=== PATIENT | female | born 1945 | race Two or more races ===

== ENCOUNTER 2018-07-08 19:40 | Inpatient (IN) | payer SELFPAY ==
[~2018-07-08] VITALS: Ht 157.5 cm; Wt 59.7 kg
[~2018-07-08 19:40] MED LIST: InsuLIN REG 1unit/0.01ml Soln (100units/ml) SC SCH
[2018-07-08 20:10] LABS: Basophils # (auto) 0 uL; Basophils % (auto) 0.6 % (0.0-2.0); Eosinophils # (auto) 0.1 uL; Eosinophils % (auto) 2.1 % (0.0-7.0); Hematocrit 32.6 % (36.0-46.0); Hemoglobin 10.6 g/dL (12.2-16.2); Lymphocytes # (auto) 1.1 uL; Lymphocytes % (auto) 21.5 % (10.0-50.0); Mean Corpuscular Hemoglobin 27.7 pg (28.0-32.0); Mean Corpuscular Hgb Conc. 32.7 g/dL (32.0-36.0); Mean Corpuscular Volume 84.7 fL (80.0-100.0); Monocytes # (auto) 0.4 uL; Monocytes % (auto) 8.2 % (0.0-12.0); Neutrophils # (auto) 3.5 uL; Neutrophils % (auto) 67.6 % (37.0-80.0); Platelet Count (auto) 218 10^3/uL (140-450); Red Blood Cells 3.84 10^6/uL (4.0-5.20); Red Cell Distribution Width 16.7 % (11.8-14.3); White Blood Cell 5.2 10^3/uL (4.4-10.8)
[2018-07-08 20:26] LABS: Albumin 3.5 g/dL (3.4-5.0); BUN/Creatinine Ratio 30.4; Calcium 7.9 mg/dL (8.5-10.1); Potassium 3.1 mmol/L (3.5-5.1)
[2018-07-08 20:31] LABS: Bilirubin, Total 0.4 mg/dL (0.2-1.0); Total Protein 7.5 g/dL (6.4-8.2)
[2018-07-08] MEDS ORDERED: POTASSIUM CHL 20MEQ/100ML 100 ML IV ONE (20:45)
[2018-07-08] MEDS ORDERED: ONDANSETRON HCL 4 MG/2 ML VIAL IV PRN (22:45)
[2018-07-08] MEDS ORDERED: HYDROcodone-ACET 5/325MG TAB PO PRN (22:45)
[2018-07-08] MEDS ORDERED: CALCIUM GLUC 4.65meq/50ml D5AE 50 ML IV ONE (23:30)
[2018-07-08] MEDS ORDERED: DEXTROSE (50%) 50ML SYRG IV PRN (23:30)
[2018-07-08] MEDS ORDERED: MAGNESIUM SULFATE 1GM/100ML 100 ML IV ONE (23:30)
[2018-07-08] MEDS ORDERED: FUROSEMIDE 20 MG/2 ML VIAL IV ONE (23:30)
[2018-07-08 23:56] LABS: INR 1.07 (0.9-1.15); Partial Thromboplastin Time 25.7 sec (23.78-33.04); Prothrombin Time 11.4 sec (9.27-12.13)
[2018-07-09] MEDS ORDERED: METF-370 PO
[2018-07-09] MEDS ORDERED: CARV12.544 PO
[2018-07-09] MEDS ORDERED: ASPI81CH43 PO
[2018-07-09] MEDS ORDERED: CARB45TA PO
[2018-07-09] MEDS ORDERED: FURO40TA4 PO
[2018-07-09] MEDS ORDERED: ATOR1TAB PO
[2018-07-09] MEDS: InsuLIN REG 1unit/0.01ml Soln (100units/ml) SC SCH ×5 (00:48→22:16)
[2018-07-09 01:00] VITALS: BP 129/67
[2018-07-09 01:10] VITALS: BP 129/67
--- NOTE | 2018-07-09 01:15 | NUR ---
Telemetry admit from ER Patient admitted to Telemetry unit and oriented to primary RN, unit, room, bed, and unit policies regarding patient care and visiting hours. Patient now on continuous telemetry monitoring, tele box #37 and telemetry reading on arrival to unit is sinus rhythm. Patient weighed by bedscale and encouraged to call if they need something. All questions and concerns addressed, patient verbalized understanding. Bed is in lowest position and locked. Call light within reach. Board updated.
--- NOTE | 2018-07-09 02:28 | NUR ---
Patient's vehicle monitor technician changed to #[id number].
[2018-07-09 03:41] LABS: Urine Bacteria NONE SEEN /hpf (None Seen); Urine Blood Negative /uL (Negative); Urine Specific Gravity 1.007 (1.001-1.035); Urine WBC 1 /hpf (0 - 5)
[2018-07-09 05:55] LABS: Basophils # (auto) 0 uL; Basophils % (auto) 0.5 % (0.0-2.0); Eosinophils # (auto) 0 uL; Eosinophils % (auto) 0.8 % (0.0-7.0); Hematocrit 30.5 % (36.0-46.0); Hemoglobin 10.3 g/dL (12.2-16.2); Lymphocytes # (auto) 0.8 uL; Lymphocytes % (auto) 18.3 % (10.0-50.0); Mean Corpuscular Hemoglobin 27.9 pg (28.0-32.0); Mean Corpuscular Hgb Conc. 33.7 g/dL (32.0-36.0); Mean Corpuscular Volume 82.9 fL (80.0-100.0); Monocytes # (auto) 0.3 uL; Monocytes % (auto) 6.9 % (0.0-12.0); Neutrophils # (auto) 3.3 uL; Neutrophils % (auto) 73.5 % (37.0-80.0); Nucleated Red Blood Cells % 0.1 %; Platelet Count (auto) 225 10^3/uL (140-450); Red Blood Cells 3.68 10^6/uL (4.0-5.20); Red Cell Distribution Width 16.3 % (11.8-14.3); White Blood Cell 4.5 10^3/uL (4.4-10.8)
[2018-07-09 06:09] LABS: Anion Gap 9 (5-15); Blood Urea Nitrogen 30 mg/dL (7-18); Calcium 7.9 mg/dL (8.5-10.1); Carbon Dioxide 28 mmol/L (21-32); Chloride 102 mmol/L (98-107); Cholesterol 129 mg/dL (< 200); GFR African American > 60 mL/min; GFR Non-African American > 60 mL/min; Glucose 215 mg/dL (74-106); Sodium 139 mmol/L (136-145)
[2018-07-09 06:14] LABS: HDL Cholesterol 37 mg/dL (40-59); LDL Cholesterol 84 mg/dL (< 100); Triglycerides 84 mg/dL (< 150)
[2018-07-09] MEDS: FAMOTIDINE 20 MG TAB PO SCH (06:36)
[2018-07-09] MEDS: ACCU-CHEK COMFORT CURVE STRIP VI SCH ×4 (06:36→22:16)
--- NOTE | 2018-07-09 07:30 | NUR ---
Report received. Patient alert and oriented. Patient denies pain. No S/S distress. Call light in reach. Will continue to monitor.
[2018-07-09] MEDS ORDERED: CARVEDILOL 3.125 MG TAB PO SCH (08:00)
[2018-07-09 09:00] VITALS: BP 140/76
[2018-07-09] MEDS: CARVEDILOL 12.5 MG TAB PO SCH ×2 (10:10→18:43)
[2018-07-09] MEDS: ASPirin-EC 81 mg tab PO SCH (10:10)
[2018-07-09] MEDS: FUROSEMIDE 40 MG/4 ML VIAL IV SCH (10:10)
[2018-07-09 13:00] VITALS: BP 133/80
--- NOTE | 2018-07-09 14:20 | NUR ---
Dr. Rodrigez in to see patient as hospitalist.
--- NOTE | 2018-07-09 15:15 | NUR ---
WOUND CARE NOTE: Wound care consult received from nursing for open sore to left second toe. Patient is a 73 yo female admitted for syncope. Patient with a history of CHF, HTN, MO, hyperlipidemia, diabetes and valve replacement. Patient is alert, denies pain. Last Ramsey score is 19. Reviewed photos taken on admission by [facility] RN. Discussed with bedside RNSandy. Patient noted to have pink healing wound to left 2nd toe. No open wound noted. RECOMMENDATIONS: Encourage frequent repositioning; Nursing to cleanse skin with mild soap and water, pat dry and apply moisturizer BID/PRN; No further need by wound care team at this time.
--- NOTE | 2018-07-09 16:04 | NUR ---
Nutrition Consult/assessment Notes please see attached link for complete assessment Est. Needs BW 59 [id number] kcal (25-30 kcal/kgBW), 59-70 gms pro (1.0-1.2 gms/kgBW). Will continue to monitor pertinent labs and reassess nutrient need prn Addendum: 07/09/18 at [address] Amended: Links added.
[2018-07-09 17:00] VITALS: BP 113/64
--- NOTE | 2018-07-09 19:16 | NUR ---
Opening Shift Note Assumed care of patient, awake and alert x 4. No S/S of distress/SOB or pain. Bed is in lowest position and locked. Call light within reach. Board updated. Tele box number matches monitor and leads are in correct placement. Instructed on POC and to call for assist PRN, will continue to monitor for changes Q1hr and PRN.
[2018-07-09 22:00] VITALS: BP 137/78
[2018-07-09] MEDS ORDERED: ATORVASTATIN 20 MG TAB PO SCH (22:00)
[2018-07-09] MEDS: ATORVASTATIN 20 MG TAB PO SCH (22:16)
--- NOTE | 2018-07-09 23:05 | NUR ---
Patient moved to room 284b. All personal belongings moved into patient's room with her.
[2018-07-10] MEDS: ACETAMINOPHEN 500 MG TAB PO PRN ×2 (02:27→12:01)
[2018-07-10 05:00] VITALS: BP 134/59
[2018-07-10] MEDS: InsuLIN REG 1unit/0.01ml Soln (100units/ml) SC SCH ×4 (06:32→22:00)
[2018-07-10] MEDS: ACCU-CHEK COMFORT CURVE STRIP VI SCH ×4 (06:32→22:15)
[2018-07-10] MEDS: FAMOTIDINE 20 MG TAB PO SCH (06:32)
[2018-07-10 06:36] LABS: Basophils # (auto) 0.1 uL; Eosinophils # (auto) 0.1 uL; Hematocrit 31.2 % (36.0-46.0); Hemoglobin 10.6 g/dL (12.2-16.2); Lymphocytes # (auto) 1.3 uL; Lymphocytes % (auto) 25.1 % (10.0-50.0); Mean Corpuscular Hemoglobin 28.1 pg (28.0-32.0); Mean Corpuscular Hgb Conc. 33.8 g/dL (32.0-36.0); Monocytes # (auto) 0.5 uL; Monocytes % (auto) 9.9 % (0.0-12.0); Neutrophils # (auto) 3.1 uL; Platelet Count (auto) 216 10^3/uL (140-450); Red Blood Cells 3.77 10^6/uL (4.0-5.20); Red Cell Distribution Width 16.9 % (11.8-14.3)
[2018-07-10 07:35] LABS: Chloride 102 mmol/L (98-107); Potassium 3.2 mmol/L (3.5-5.1); Sodium 138 mmol/L (136-145)
--- NOTE | 2018-07-10 07:50 | NUR ---
Opening Shift Note Assumed care of patient, awake and alert. No S/S of distress/SOB or pain. Instructed on POC and to call for assist PRN, will continue to monitor for changes Q1hr and PRN.
[2018-07-10] MEDS: CARVEDILOL 12.5 MG TAB PO SCH ×2 (08:00→18:00)
[2018-07-10 08:21] LABS: Anion Gap 8 (5-15); Carbon Dioxide 28 mmol/L (21-32)
[2018-07-10 08:22] LABS: BUN/Creatinine Ratio 33.6; Blood Urea Nitrogen 36 mg/dL (7-18); Calcium 8.5 mg/dL (8.5-10.1); GFR African American > 60 mL/min; GFR Non-African American 53 mL/min; Glucose 128 mg/dL (74-106)
[2018-07-10 09:00] VITALS: BP 98/56
[2018-07-10] MEDS: FUROSEMIDE 40 MG/4 ML VIAL IV SCH (10:40)
[2018-07-10] MEDS: ASPirin-EC 81 mg tab PO SCH (10:40)
[2018-07-10] MEDS ORDERED: POTASSIUM CHLORIDE 8 MEQ TAB PO ONE (11:45)
[2018-07-10 13:00] VITALS: BP 145/69
--- NOTE | 2018-07-10 14:00 | NUR ---
Called [facility] regarding medical records request. Staff states to resend the fax to [phone].
--- NOTE | 2018-07-10 14:02 | NUR ---
Resent fax re: medical record request to [phone].
--- NOTE | 2018-07-10 14:18 | NUR ---
Dr. Browne at nurses' station. Informed him regarding the cardio consult.
[2018-07-10 17:00] VITALS: BP 125/69
--- NOTE | 2018-07-10 18:57 | NUR ---
CLOSING NOTE PATIENT RESTING IN BED, NO SIGNS OF DISTRESS NOTED. WILL GIVE REPORT TO NIGHT RN.
--- NOTE | 2018-07-10 19:20 | NUR ---
Opening Shift Note BEd side report with day RN Dustin. Assumed care of patient, awake and alert. No S/S of distress/SOB or pain. Instructed on POC and to call for assist PRN, will continue to monitor for changes Q1hr and PRN. 2x side rails up, bed locked and in lowest position, call light within reach.
[2018-07-10] MEDS: ATORVASTATIN 20 MG TAB PO SCH (21:54)
[2018-07-10 22:00] VITALS: BP 132/70
[2018-07-11] VITALS (7 sets, daily range): BP systolic 110–149; BP diastolic 61–88
[2018-07-11] MEDS: ACETAMINOPHEN 500 MG TAB PO PRN (02:19)
[2018-07-11] MEDS: FAMOTIDINE 20 MG TAB PO SCH (06:36)
[2018-07-11] MEDS: ACCU-CHEK COMFORT CURVE STRIP VI SCH ×4 (06:37→21:24)
[2018-07-11] MEDS: InsuLIN REG 1unit/0.01ml Soln (100units/ml) SC SCH ×4 (06:37→21:24)
--- NOTE | 2018-07-11 06:48 | NUR ---
IV DRESSING CHANGE PT tolerated procedure well
[2018-07-11 07:29] LABS: Basophils # (auto) 0 uL; Basophils % (auto) 0.6 % (0.0-2.0); Eosinophils # (auto) 0.1 uL; Eosinophils % (auto) 1.6 % (0.0-7.0); Hemoglobin 10.7 g/dL (12.2-16.2); Lymphocytes # (auto) 1.1 uL; Lymphocytes % (auto) 20.4 % (10.0-50.0); Mean Corpuscular Hemoglobin 27.7 pg (28.0-32.0); Mean Corpuscular Hgb Conc. 33.3 g/dL (32.0-36.0); Mean Corpuscular Volume 83.3 fL (80.0-100.0); Monocytes # (auto) 0.4 uL; Monocytes % (auto) 6.7 % (0.0-12.0); Neutrophils # (auto) 3.9 uL; Neutrophils % (auto) 70.7 % (37.0-80.0); Nucleated Red Blood Cells % 0.2 %; Platelet Count (auto) 214 10^3/uL (140-450); Red Blood Cells 3.85 10^6/uL (4.0-5.20); Red Cell Distribution Width 16.6 % (11.8-14.3); White Blood Cell 5.5 10^3/uL (4.4-10.8)
--- NOTE | 2018-07-11 07:35 | NUR ---
OPENING SHIFT PATIENT IS AWAKE, ALERT, AND ORIENTED X4. RESPIRATIONS EVEN AND UNLABORED. NO S/S OF DISTRESS, SOB, OR PAIN. PATIENT IS ON ROOM AIR AND SALINE LOCKED. BED IS IN LOWEST POSITION, SIDE RAILS UPX2, AND CALL LIGHT WITHIN REACH. PATIENT IS [place] SPEAKING. ABLE TO UNDERSTAND SOME [place]. DISCUSSED POC WITH PATIENT. PATIENT VERBALIZED UNDERSTANDING. WILL CONTINUE TO MONITOR Q1 HOUR AND PRN.
[2018-07-11 07:39] LABS: Anion Gap 9 (5-15); BUN/Creatinine Ratio 37.5; Blood Urea Nitrogen 36 mg/dL (7-18); Calcium 8.1 mg/dL (8.5-10.1); Carbon Dioxide 26 mmol/L (21-32); Chloride 103 mmol/L (98-107); GFR African American > 60 mL/min; GFR Non-African American 60 mL/min; Glucose 122 mg/dL (74-106); Potassium 3.7 mmol/L (3.5-5.1); Sodium 138 mmol/L (136-145)
--- NOTE | 2018-07-11 07:47 | NUR ---
CLOSING NOTE Report endorsed to day RN Polly, pt awake no s/sx's of distress or sob noted
[2018-07-11] MEDS: CARVEDILOL 12.5 MG TAB PO SCH ×2 (08:16→18:55)
[2018-07-11] MEDS: ASPirin-EC 81 mg tab PO SCH (09:38)
[2018-07-11] MEDS: POTASSIUM CHL 10 Meq TABLET PO SCH (09:38)
[2018-07-11] MEDS: FUROSEMIDE 40 MG/4 ML VIAL IV SCH (09:39)
--- NOTE | 2018-07-11 17:59 | NUR ---
RECEIVED HUA STRIPS PATIENT HAS A RUN OF 6 PVCS / V TACH PAGED DR. SULLIVAN TO INFORM HOSPITALIST OF TELE REPORT PATIENT IS CURRENTLY NSR AT 74 BPM PATIENT IS SHOWING NO S/S OF DISTRESS, SOB, OR PAIN.
--- NOTE | 2018-07-11 18:54 | NUR ---
END OF SHIFT PATIENT IN BED RESTING. NO S/S OF DISTRESS, SOB, OR PAIN. RESPIRATIONS EVEN AND UNLABORED. ALL QUESTIONS AND CONCERNS ADDRESSED. BED IN LOWEST POSITION, SIDE RAILS UPX2, AND CALL LIGHT WITHIN REACH. WILL ENDORSE CARE TO TIRE TRUCKER R.N.
[2018-07-11] MEDS: ATORVASTATIN 20 MG TAB PO SCH (21:17)
--- NOTE | 2018-07-11 22:30 | NUR ---
REGARDING [facility] FAX Informed nurse discharge planner about fax not being delivered. Informed u/s if can inform day u/s. Will endorse to day RN . will continue to monitor pt.
--- NOTE | 2018-07-11 23:00 | NUR ---
PT ROUNDS Pt resting no s/sx;s of distress or sob noted will continue to monitor pt
[2018-07-12 05:00] VITALS: BP 132/70
[2018-07-12] MEDS: ACETAMINOPHEN 500 MG TAB PO PRN (05:18)
[2018-07-12] MEDS: InsuLIN REG 1unit/0.01ml Soln (100units/ml) SC SCH ×4 (06:39→22:12)
[2018-07-12] MEDS: FAMOTIDINE 20 MG TAB PO SCH (06:39)
[2018-07-12] MEDS: ACCU-CHEK COMFORT CURVE STRIP VI SCH ×4 (06:39→22:12)
--- NOTE | 2018-07-12 07:15 | NUR ---
Shift Note Received report from night RN. Pt resting in bed., bed locked, in low position, rails up 2 x, and call jamison in reach. Denies any pain and no distress noted.
--- NOTE | 2018-07-12 07:32 | NUR ---
CLOSING NOTE Report endorsed to day RN
[2018-07-12] MEDS: POTASSIUM CHL 10 Meq TABLET PO SCH (08:51)
[2018-07-12] MEDS: ASPirin-EC 81 mg tab PO SCH (08:52)
[2018-07-12] MEDS: CARVEDILOL 12.5 MG TAB PO SCH ×2 (08:52→17:56)
[2018-07-12 09:00] VITALS: BP 148/74
[2018-07-12] MEDS: FUROSEMIDE 40 MG/4 ML VIAL IV SCH (09:03)
--- NOTE | 2018-07-12 09:03 | NUR ---
IV RESTART OL IV LEAKING, RESTARTED NEW ONE IN LEFT FORARM #22.
[2018-07-12 13:00] VITALS: BP 123/70
--- NOTE | 2018-07-12 16:11 | NUR ---
[facility] MEDICAL RECORDS Called [facility] and the instructions are to obtain their form at [email or web address]. We have no availability to do this as we have no internet access outside the hospital. Left a message at [phone] and asked for a Request for Medical Record form from them and asked them to fax it to [phone], so we can complete the form and get the patient's records. Awtg call back and awtg the form to be faxed.
[2018-07-12 17:17] VITALS: BP 95/53
--- NOTE | 2018-07-12 19:32 | NUR ---
SHIFT REPORT REPORT ENDORSED TO NIGHT CRIS LUI. PT resting in bed, bed in low position, locked, rails up x 2, call light in reach. Family at bedside. No distress noted. Addendum: 07/12/18 at 1940 by LISA ARROYO RN RN Also endorsed the need to obtain MEDICAL RECORDS FROM [facility] AT [phone]
--- NOTE | 2018-07-12 19:35 | NUR ---
Opening Shift Note eceived report from Adriana LUI. Assumed care of patient, awake and alert, family at bedside. No S/S of distress/SOB or pain. Instructed on POC and to call for assist PRN. Fall precaution measures in place, will continue to monitor for changes Q1hr and PRN.
[2018-07-12 21:38] VITALS: BP 118/64
[2018-07-12] MEDS: ATORVASTATIN 20 MG TAB PO SCH (21:47)
[2018-07-13 05:02] VITALS: BP 138/67
[2018-07-13] MEDS: ACCU-CHEK COMFORT CURVE STRIP VI SCH ×4 (06:39→22:00)
[2018-07-13] MEDS: InsuLIN REG 1unit/0.01ml Soln (100units/ml) SC SCH ×4 (06:40→22:00)
--- NOTE | 2018-07-13 07:30 | NUR ---
Patient stable, no sob or pain. Endorsed care to Jing LUI.
[2018-07-13 08:48] VITALS: BP 138/70
[2018-07-13] MEDS: CARVEDILOL 12.5 MG TAB PO SCH ×2 (09:11→17:44)
[2018-07-13] MEDS: ASPirin-EC 81 mg tab PO SCH (09:11)
[2018-07-13] MEDS: FUROSEMIDE 40 MG/4 ML VIAL IV SCH (09:11)
[2018-07-13] MEDS: FAMOTIDINE 20 MG TAB PO SCH (09:11)
[2018-07-13] MEDS: POTASSIUM CHL 10 Meq TABLET PO SCH (09:11)
--- NOTE | 2018-07-13 09:16 | NUR ---
MEDICATIONS ADMIN With use of translation phone and written hand out, medications administered. Patient verbalized understanding.
--- NOTE | 2018-07-13 11:55 | NUR ---
MEDICAL RECORD REQUESTS FAXED TO [facility]
[2018-07-13 12:55] VITALS: BP 115/69
--- NOTE | 2018-07-13 14:10 | NUR ---
DR BILLIE Browne at nursing station. Per Dr Browne patient is clear from his stand point for discharge.
[2018-07-13 17:22] VITALS: BP 114/62
[2018-07-13 22:00] VITALS: BP 114/64
[2018-07-13] MEDS: ATORVASTATIN 20 MG TAB PO SCH (22:01)
[2018-07-14 05:00] VITALS: BP 121/70
[2018-07-14] MEDS: InsuLIN REG 1unit/0.01ml Soln (100units/ml) SC SCH ×3 (07:00→17:47)
[2018-07-14] MEDS: ACCU-CHEK COMFORT CURVE STRIP VI SCH ×3 (07:06→17:47)
[2018-07-14] MEDS: FAMOTIDINE 20 MG TAB PO SCH (07:07)
--- NOTE | 2018-07-14 08:00 | NUR ---
Opening Shift Note Assumed care of patient, awake and alert. Sitting on side of bed to eat breakfast. Denies distress/SOB, pain, or needing anything at this time. Instructed on POC and to call for assist PRN, will continue to monitor for changes Q2hr and PRN.
[2018-07-14 08:51] VITALS: BP 124/71
[2018-07-14] MEDS: ASPirin-EC 81 mg tab PO SCH (09:19)
[2018-07-14] MEDS: CARVEDILOL 12.5 MG TAB PO SCH ×2 (09:19→17:46)
[2018-07-14] MEDS: FUROSEMIDE 40 MG/4 ML VIAL IV SCH (09:20)
[2018-07-14] MEDS: POTASSIUM CHL 10 Meq TABLET PO SCH (09:20)
--- NOTE | 2018-07-14 12:40 | NUR ---
ROUNDING Dr Delacruz rounding. Patient cleared for Discharge.
[2018-07-14 13:04] VITALS: BP 144/68
[2018-07-14 17:00] VITALS: BP 110/56
--- NOTE | 2018-07-14 19:08 | NUR ---
DISCHARGE GAVE PATIENT EDUCATION AND EXPLAINED DISCHARGE PAPERWORK. FAMILY PRESENT. PATIENT SIGNED ALL PAPERWORK. IV WAS REMOVED FROM LEFT ARM. ARMBANDS REMOVED. FAMILY AND PATIENT QUESTIONS WERE ANSWERED BY NURSE. PATIENT WILL BE TAKEN DOWN BY DENTAL OFFICE ASSISTANT TEXTILE SCIENCE TECHNICIAN.
== END 2018-07-14 19:15 | disposition home or self-care (01) | DRG 292 ==
LOC: ER 19:40 → EDBD 19:40 → TELE 23:27 → TELE-WESTW 07-09 01:04
PROVIDERS: ADMIT Nurse Practitioner Family; ATTEND Family Medicine
DX: I11.0 Hypertensive heart disease with heart failure (principal); G93.40 Encephalopathy, unspecified; I50.43 Acute on chronic combined systolic (congestive) and diastolic (congestive) heart failure; R55 Syncope and collapse; D64.9 Anemia, unspecified; E78.00 Pure hypercholesterolemia, unspecified; I25.10 Atherosclerotic heart disease of native coronary artery without angina pectoris; E83.42 Hypomagnesemia; E11.21 Type 2 diabetes mellitus with diabetic nephropathy; R19.7 Diarrhea, unspecified; E87.6 Hypokalemia; E83.51 Hypocalcemia; E78.5 Hyperlipidemia, unspecified; Z86.73 Personal history of transient ischemic attack (TIA), and cerebral infarction without residual deficits; I25.2 Old myocardial infarction; Z95.2 Presence of prosthetic heart valve; Z79.84 Long term (current) use of oral hypoglycemic drugs
CPT/HCPCS: 36415; 70450; 71045; 80048; 80053; 80061; 81001; 82962; 83036; 83735; 83880; 84443; 84484; 85025; 85610; 85730; 87081; 93005; 93306; 93886; 94761; 96361; 96365; 96367; 96375; G0378; J0610; J1815; J3480